=== PATIENT | male | born 1970 | race Caucasian/White ===

== ENCOUNTER → 2021-10-31 10:26 | Outpatient (CLI) | payer OTHER, SELFPAY ==
--- NOTE | 2021-10-31 | DI.CT.S_ITS ---
PROCEDURE: CT LUMBAR SPINE WO CON INDICATIONS: Radiculopathy, lumbosacral region TECHNIQUE: Noncontrast 3 mm thick sections acquired from the T12 level to the sacrum. Sagittal and coronal reformats were constructed. For radiation dose reduction, the following was used: automated exposure control. COMPARISON: None. FINDINGS: Image quality: Excellent. Bones: There is normal bony alignment. 5 lumbar type vertebral bodies are present by plain film. No acute vertebral body compression fractures. No suspicious lytic or blastic bony lesions. No pars defects. Disc space narrowing and endplate osteophyte formation throughout the lumbar spine, worst at L5-S1. There is mild diffuse disc bulge/osteophyte, as well as mild bilateral facet hypertrophy at L5-S1, causing mild canal stenosis, as well as moderate bilateral foraminal stenosis. Mild canal and foraminal stenosis at the remaining lumbar levels secondary to disc and facet disease. Soft tissues: No retroperitoneal masses or hematomas. Visualized aorta is normal in caliber. IMPRESSION: 1. Multilevel degenerative disc and facet disease. 2. Mild multilevel canal stenoses. 3. Multilevel foraminal stenoses, worst at L5-S1, where there are moderate foraminal stenoses. 4. No fracture. Dictated by: Mare You M.D. on 10/31/2021 at 11:47 Transcribed by: SAL on 10/31/2021 at 11:49 Approved by: Mare You M.D. on 10/31/2021 at 11:49
== END ==
PROVIDERS: PCP Family Medicine; Referring Provider Physical Medicine & Rehabilitation; Visit Provider Physical Medicine & Rehabilitation
DX: M54.17 Radiculopathy, lumbosacral region (principal); Z96.21 Cochlear implant status; M51.36 Other intervertebral disc degeneration, lumbar region; M48.061 Spinal stenosis, lumbar region without neurogenic claudication
CPT/HCPCS: 72131

== ENCOUNTER 2021-12-25 10:08 | Outpatient (CLI) | payer OTHER, SELFPAY ==
[2021-12-25] VITALS (7 sets, daily range): BP systolic 113–136; BP diastolic 65–92; PULSE 46–78; RESP 13–20; TEMP 36.3; O2SAT 98–100
--- NOTE | 2021-12-25 10:11 | DI.RAD.S_ITS ---
PROCEDURE: PAIN L/S TRANSFORAMINAL INJECT INDICATIONS: SPONDYLOSIS COMPARISON: None. FINDINGS: Fluoroscopic spot filming was performed to verify placement of spinal needles at the L5-S1 level(s), as labeled on the films. Appropriate location(s) of the needle tip(s) was confirmed by injection of iodinated contrast. IMPRESSION: Fluoroscopic guidance Approved by: Ayan Min M.D. on 12/25/2021 at 16:26
[2021-12-25 10:45] LABS: COVID19 -Nasal RAPID Negative (Negative)
[2021-12-25] MEDS: MIDAZOLAM 2 MG/2 ML VIAL 3 MG IV (11:36)
[2021-12-25] MEDS: IOPAMIDOL 15 ML VIAL 3 ML INJ (11:37)
[2021-12-25] MEDS: DEXAMETHASONE 10 MG/ML VIAL 20 MG INJ (11:38)
[2021-12-25] MEDS: BUPIVACAINE 0.25% (PF) VIAL 2 ML INJ (11:38)
[2021-12-25] MEDS: BETAMETHASONE 30 MG/5 ML MDV 6 MG INJ (11:39)
--- NOTE | 2021-12-25 11:45 | P.PCN_ITS ---
Date/Time/Diagnoses Date of procedure: 12/25/21 Time of procedure: 11:46 Pre-procedure diagnosis: FORAMINAL STENOSIS WITH LE SYMPTOMS Post-procedure diagnosis: same Procedure Notes Procedure: 1. FLUOROSCOPICALLY GUIDED CONTRAST CONTROLLED TRANSFORAMINAL EPIDURAL STEROID INJECTION - LEFT L5/S1 TFESI Indications: Jeyson is referred by Drs. Flynn and Segundo for treatment of Foraminal Stenosis with Right LE Symptoms Physician: Rodolfo Cavanaugh Total Fluoroscopy time (seconds): 10 Total sedation minutes: 11 Complications: none Procedure in detail & Post-procedure care: FINDINGS Foraminal Nerve Root Compression secondary to disc disease and facet hypertrophy DESCRIPTION OF PROCEDURE Following review of allergy and review of potential side effects and complications, including, but not necessarily limited to, infection, allergic reaction, local tissue breakdown, stroke, temporary or permanent nerve injury, paralysis, and possible , the patient indicated that the patient understood and agreed to proceed. An informed consent document was signed by the patient, witnessed by a nurse, and placed in the patient's chart. Additionally, other treatment options including medications, modalities, and physical therapy were reviewed with the patient. After review of previous anaesthesic history and IV conscious sedation the patient was deemed safe to proceed with today?s procedure with IV conscious sedation as ASA class II designation. Safety time-out was performed to confirm patient ID, procedure to be performed and site of procedure. IV sedation was accomplished with a combination of 3mg of Versed was administered by the RN after DO order, titrated to patient comfort during the course of the procedure while the patient remained responsive to all verbal commands In the prone position following sterile prep and drape of the lumbar region, the left L5/S1 posterior neuroforamen was identified fluoroscopically. The skin was anesthetized via a 25-gauge 1.5-inch needle with 1% lidocaine solution. At this point, a 25-gauge 3.5-inch spinal needle was atraumatically introduced and advanced under fluoroscopic guidance through the posterior left L5/S1 neuroforamen to approximately the anterior aspect of the canal. Depth was confirmed on lateral view. Following negative aspiration, injection of approximately 1.5cc of Isovue 200 under live fluoroscopy in the AP view confirmed excellent flow along the nerve root, into the epidural space without vascular or intrathecal uptake observed Radiological data, including multiple fluoroscopic views of the lumbosacral spine, reveal a spinal needle at the left L5/S1 posterior neuroforamen. Subsequent views show flow of contrast material flowing superiorly and inferiorly along the nerve root confirming epidural flow. Subsequently, a test dose of 1.5 cc of 1% lidocaine solution was administered and patient was observed for two minutes for signs or symptoms of complications, including abdominal pain, shortness of breath, bilateral upper or lower extremity weakness, nausea and vomiting, prior to steroid injection. At this point, a total of 3cc or 20mg of dexamethasone and 6mg of betamethasone was injected without incident. The procedure tolerated the procedure well without signs or symptoms of complications prior to transfer to the recovery area continued monitoring without incident. The patient was then transferred to the recovery area where they were observed for an appropriate time after the injection. The patient reported a VAS score of 7 prior to the procedure and a post- procedure VAS of 0. POST OP INSTRUCTIONS The patient was provided a Pain Log to continue to record their response to the target-specific procedure prior to follow-up visit with their referring physician. Additionally, specific post-injection care instructions and a contact number to our office were provided if concerns arise regarding possible complications associated with the procedure are suspected.
== END 2021-12-25 12:07 | disposition home or self-care (01) ==
LOC: RAD 10:10
PROVIDERS: PCP Family Medicine; Referring Provider Physical Medicine & Rehabilitation; Visit Provider Physical Medicine & Rehabilitation
DX: M47.816 Spondylosis without myelopathy or radiculopathy, lumbar region (principal); M54.17 Radiculopathy, lumbosacral region; Z20.822 Contact with and (suspected) exposure to COVID-19
CPT/HCPCS: 64483; 87635; 99152; J0702; J1100; J2250; J3490

== ENCOUNTER 2022-01-20 08:34 | Outpatient (CLI) | payer OTHER, SELFPAY ==
[2022-01-20] VITALS (8 sets, daily range): BP systolic 109–132; BP diastolic 67–87; PULSE 52–72; RESP 12–18; TEMP 36.4; O2SAT 96–100
--- NOTE | 2022-01-20 08:38 | DI.RAD.S_ITS ---
PROCEDURE: PAIN C/T INTERLAMINAR INJECT INDICATIONS: C6/7 TL FRANCISCA COMPARISON: Outside Facility, RG, CT C-SPINE WO CONTRAST, 08/11/2021, 17:51. [facility], XA, PAIN L/S TRANSFORAMINAL INJECT, 12/25/2021, 11:36. FINDINGS: Fluoroscopic spot filming was performed to verify placement of a spinal needle at the C6-C7 level, as labeled on the films. Appropriate location of the needle tip was confirmed by injection of iodinated contrast. IMPRESSION: No significant intraprocedural abnormality. Dictated by: Ant Graham M.D. on 01/20/2022 at 13:48 Approved by: Ant Graham M.D. on 01/20/2022 at 13:48
[2022-01-20] MEDS: MIDAZOLAM 2 MG/2 ML VIAL IV (10:02)
[2022-01-20] MEDS: IOPAMIDOL 15 ML VIAL 3 ML INJ (10:07)
[2022-01-20] MEDS: BUPIVACAINE 0.25% (PF) VIAL 2 ML INJ (10:07)
[2022-01-20] MEDS: DEXAMETHASONE 10 MG/ML VIAL 30 MG INJ (10:08)
--- NOTE | 2022-01-20 10:20 | P.PCN_ITS ---
Date/Time/Diagnoses Date of procedure: 01/20/22 Time of procedure: 10:20 Pre-procedure diagnosis: 1. CERVICAL STENOSIS, 2. CERVICAL HNP WITH UPPER EXTREMITY RADICULAR FEATURES Post-procedure diagnosis: same Procedure Notes Procedure: 1. FLUORSCOPICALLY GUIDED CONTRAST CONTROLLED INTERLAMINAR EPIDURAL STEROID INJECTION - C6/7 TL FRANCISCA Indications: Jeyson is referred by Dr. Flynn for treatment of Cervical HNP with Upper Extremity Paresthesias. Physician: Rodolfo Cavanaugh Total Fluoroscopy time (seconds): 25 Total sedation minutes: 12 Complications: none Procedure in detail & Post-procedure care: FINDINGS Cervical Stenosis due to disc deterioration and nerve root irritation and nerve root irritation DESCRIPTION OF PROCEDURE Fluoroscopically guided, contrast-controlled C6/7 translaminar epidural steroid injection with conscious sedation. Following review of allergy and review of potential side effects and complications, including, but not necessarily limited to, infection, allergic reaction, local tissue breakdown, temporary as well as permanent nerve injury, stroke, paralysis, and possible , the patient indicated that patient understood and agreed to proceed. An informed consent document was signed by the patient, witnessed by a nurse, and placed in the patient's chart. Additionally, other treatment options including modalities, medications, and physical therapy were reviewed with the patient. After review of previous anaesthesic history and IV conscious sedation the patient was deemed safe to proceed with today?s procedure with IV conscious sedation as ASA class II designation. Safety time-out was performed to confirm patient ID, procedure to be performed and site of procedure. IV sedation was accomplished with a combination of 2mg of Versed administered by the RN after DO order, titrated to patient comfort during the course of the procedure while the patient remained responsive to all verbal commands. In the prone position, following sterile prep and drape of the cervical region, the C6/7 translaminar space was identified fluoroscopically. The skin was anesthetized via a 25-gauge 1.5-inch needle with 1% lidocaine solution. At this point, a 25-gauge, 2.5-inch short bevel spinal needle was atraumatically introduced and advanced under fluoroscopic guidance into epidural space at the C6/7 translaminar space. Depth was confirmed on lateral view. Radiological data, including multiple fluoroscopic views of the cervical spine, reveal a spinal needle at the C6/7 translaminar space. Lateral views then show placement of the needle in the epidural space. Subsequent views show contrast material flowing superiorly and inferiorly in the epidural space. DSA fluoroscopy with live contrast injection, once again, confirmed no vascular or intrathecal uptake. At this point, using loss of resistance technique with saline and air, the epidural space was entered. Following negative aspiration, injection of approximately 1.5 cc of Isovue-200 with live fluoroscopy in the AP view confirmed epidural flow in the epidural space without vascular or intrathecal uptake observed. Subsequently, a test dose of 1 cc of 1% lidocaine solution was injected and patient was observed for two minutes without signs or symptoms of complications, including abdominal pain, shortness of breath, bilateral upper or lower extremity weakness, nausea and vomiting, prior to steroid injection. At this point, 3cc or 30mg of dexamethasone was then injected without incident. The patient tolerated the procedure well without signs or symptoms of comp lications prior to being transferred to the recovery area for further monitoring, The patient was then transferred to the recovery area where they were observed for an appropriate period of time after the injection. The patient reported a VAS score of 6 prior to the procedure and a post-procedure VAS of 0. POST OP INSTRUCTIONS The patient was provided a Pain Log to continue to record their response to the target-specific procedure prior to follow-up visit with the referring provider. Additionally, specific post-injection care instructions and a contact number to our office were provided if concerns arise regarding possible complications associated with the procedure are suspected.
== END 2022-01-20 10:35 | disposition home or self-care (01) ==
PROVIDERS: PCP Family Medicine; Referring Provider Physical Medicine & Rehabilitation; Visit Provider Physical Medicine & Rehabilitation
DX: M48.02 Spinal stenosis, cervical region (principal); M50.123 Cervical disc disorder at C6-C7 level with radiculopathy
CPT/HCPCS: 62321; 99152; J1100; J2250; J3490

== ENCOUNTER 2022-04-02 07:44 | Outpatient (CLI) | payer OTHER, SELFPAY ==
[2022-04-02] VITALS (9 sets, daily range): BP systolic 111–138; BP diastolic 72–85; PULSE 61–83; RESP 12–20; TEMP 36.3; O2SAT 96–100
--- NOTE | 2022-04-02 07:48 | DI.RAD.S_ITS ---
PROCEDURE: PAIN L/SI FACET INJ/BLK 1STL INDICATIONS: SPONDYLOSIS COMPARISON: None. FINDINGS: Fluoroscopic spot filming was performed to verify placement of spinal needles at the left L4-L5 and L5-S1 level(s), as labeled on the films. Appropriate location(s) of the needle tip(s) was confirmed by injection of iodinated contrast. IMPRESSION: Fluoroscopy for pain management. Dictated by: Deepika Rodriguez M.D. on 04/02/2022 at 11:57 Approved by: Deepika Rodriguez M.D. on 04/02/2022 at 14:30
[2022-04-02] MEDS: MIDAZOLAM 2 MG/2 ML VIAL IV (08:41)
[2022-04-02] MEDS: IOPAMIDOL 15 ML VIAL 3 ML INJ (08:45)
[2022-04-02] MEDS: BUPIVACAINE 0.5% (PF) VIAL 5 ML INJ (08:45)
[2022-04-02] MEDS: BETAMETHASONE 30 MG/5 ML MDV 12 MG INJ (08:46)
--- NOTE | 2022-04-02 08:56 | P.PCN_ITS ---
Date/Time/Diagnoses Date of procedure: 04/02/22 Time of procedure: 08:56 Pre-procedure diagnosis: 1. FACET ARTHROPATHY, 2. AXIAL LBP, 3. MULTILEVEL DDD Post-procedure diagnosis: same Procedure Notes Procedure: 1. FLUOROSCOPICALLY GUIDED CONTRAST CONTROLLED FACET JOINT INJECTIONS LEFT L4/5, L5/S1 Indications: Jeyson is referred by Dr. Flynn for treatment of Axial LBP Physician: Rodolfo Cavanaugh Total Fluoroscopy time (seconds): 8 Total sedation minutes: 9 Complications: none Procedure in detail & Post-procedure care: FINDINGS Multilevel Facet Arthropathy with Clinically significant axial LBP DESCRIPTION OF PROCEDURE Fluoroscopically guided, contrast-controlled left L4/5, L5/S1 facet joint injections. Following review of allergy and review of potential side effects and complications, including, but not necessarily limited to, infection, allergic reaction, local tissue breakdown, stroke, temporary or permanent nerve injury, paralysis, and possible , the patient indicated that the patient understood and agreed to proceed. An informed consent document was signed by the patient, witnessed by a nurse, and placed in the patient's chart. Additionally, other treatment options including medications, modalities, and physical therapy were reviewed with the patient. After review of previous anaesthesic history and IV conscious sedation the patient was deemed safe to proceed with today?s procedure with IV conscious sedation as ASA class II designation. Safety time-out was performed to confirm patient ID, procedure to be performed and site of procedure. IV sedation was accomplished with a combination of 2mg of Versed was administered by the RN after DO order, titrated to patient comfort during the course of the procedure while the patient remained responsive to all verbal commands. In the prone position, following sterile prep and drape of the lumbar region, the posterior aspect of the left L4/5, L5/S1 facet joints were identified fluoroscopically. The skin was anesthetized via a 25-gauge 1.5-inch needle with 1% lidocaine solution into the corresponding facet joints. At this point, a 22- gauge 3.5-inch spinal needle was atraumatically introduced and advanced under fluoroscopic guidance into the corresponding facet joints. Following negative aspiration, injections of approximately 0.2-cc of Isovue 200 confirmed interarticular placement without vascular uptake. Radiological data, including multiple fluoroscopic views of the lumbosacral spine, reveal a spinal needle at the left L4/5, L5/S1 facet joints. Subsequent views show flow of contrast material both superiorly and inferiorly within the joint space without vascular or intrathecal uptake. At this point, a total of 0.5 cc including a mixture of 0.25cc Marcaine and 0.25cc betamethasone was injected without complication into each of the corresponding facet joints. The procedure tolerated the procedure well without signs or symptoms of complications prior to transfer to the recovery area continued monitoring without incident. The patient was then transferred to the recovery area where they were observed for an appropriate period of time after the injection. The patient reported a VAS score of 7 prior to the procedure and a post-procedure VAS of 0. POST OP INSTRUCTIONS The patient was provided a Pain Log to continue to record their response to the target-specific procedure prior to follow-up visit with their referring physician. Additionally, specific post-injection care instructions and a contact number to our office were provided if concerns arise regarding possible complications associated with the procedure are suspected.
== END 2022-04-02 09:25 | disposition home or self-care (01) ==
LOC: RAD 07:46
PROVIDERS: PCP Family Medicine; Referring Provider Physical Medicine & Rehabilitation; Visit Provider Physical Medicine & Rehabilitation
DX: M47.816 Spondylosis without myelopathy or radiculopathy, lumbar region (principal); M47.817 Spondylosis without myelopathy or radiculopathy, lumbosacral region; M51.36 Other intervertebral disc degeneration, lumbar region; M51.37 Other intervertebral disc degeneration, lumbosacral region
CPT/HCPCS: 64493; 64494; J0702; J2250

== ENCOUNTER 2022-05-12 08:56 | Outpatient (CLI) | payer OTHER, SELFPAY ==
[2022-05-12] VITALS (7 sets, daily range): BP systolic 111–134; BP diastolic 72–91; PULSE 88–92; RESP 10–20; TEMP 36.1; O2SAT 97–100
--- NOTE | 2022-05-12 08:57 | DI.RAD.S_ITS ---
PROCEDURE: PAIN C/T FACET INJ/BLK 1ST L INDICATIONS: SPINAL STENOSIS COMPARISON: [facility], XA, PAIN C/T INTERLAMINAR INJECT, 01/20/2022, 10:06. [facility], XA, PAIN L/SI FACET INJ/BLK 1STL, 04/02/2022, 9:44. FINDINGS: Fluoroscopic spot filming was performed to verify placement of spinal needles on the right at the C4-C5, C5-C6, and C6-C7 levels, as labeled on the films. Appropriate location of the needle tips was confirmed by injection of iodinated contrast. IMPRESSION: Intraprocedural examination demonstrating appropriate positions of the needles. Dictated by: Ant Graham M.D. on 05/12/2022 at 10:59 Approved by: Ant Graham M.D. on 05/12/2022 at 11:00
[2022-05-12] MEDS: MIDAZOLAM 2 MG/2 ML VIAL IV (10:29)
[2022-05-12] MEDS: IOPAMIDOL 15 ML VIAL 3 ML INJ (10:34)
[2022-05-12] MEDS: DEXAMETHASONE 10 MG/ML VIAL 30 MG INJ (10:34)
[2022-05-12] MEDS: BUPIVACAINE 0.5% MDV 5 ML SUBCUT (10:36)
--- NOTE | 2022-05-12 10:46 | P.PCN_ITS ---
Date/Time/Diagnoses Date of procedure: 05/12/22 Time of procedure: 10:46 Pre-procedure diagnosis: 1. FACET ARTHROPATHY 2. AXIAL NECK PAIN Post-procedure diagnosis: same Procedure Notes Procedure: 1. FLUOROSCOPICALLY GUIDED, CONTRAST-CONTROLLED RIGHT C4/5, C5/6 AND C6/7 FACET JOINT INJECTIONS WITH CONSCIOUS SEDATION. Indications: Jeyson is referred by Dr. Flynn for treatment of Axial Neck Pain Physician: Rodolfo Cavanaugh Total Fluoroscopy time (seconds): 8 Total sedation minutes: 12 Complications: none Procedure in detail & Post-procedure care: DESCRIPTION OF PROCEDURE Fluoroscopically guided, contrast-controlled right C4/5, C5/6 and C6/7 facet joint injections with conscious sedation. Following review of allergy and review of potential side effects and complications, including, but not necessarily limited to, infection, allergic reaction, local tissue breakdown, stroke, temporary or permanent nerve injury and paralysis, the patient indicated that the patient understood and agreed to proceed. An informed consent document was signed by the patient, witnessed by a nurse, and placed in the patient's chart. Additionally, other treatment options including medications, modalities, and physical therapy were reviewed with the patient. After review of previous anaesthesic history and IV conscious sedation the patient was deemed safe to proceed with today?s procedure with IV conscious sedation as ASA class II designation. Safety time-out was performed to confirm patient ID, procedure to be performed and site of procedure. IV sedation was accomplished with a combination of 2mg of Versed was administered by the RN after DO order, titrated to patient comfort during the course of the procedure while the patient remained responsive to all verbal commands In the prone position, following sterile prep and drape of the cervical spine region, the posterior aspect of the right C4/5, C5/6 and C6/7 facet joints were identified fluoroscopically. The skin was anesthetized via a 25-gauge 1.5-inch needle with 1% lidocaine solution into the corresponding facet joints. At this point, a 25-gauge 2.5-inch spinal needle was atraumatically introduced and advanced under fluoroscopic guidance into the corresponding facet joints. Following negative aspiration, injections of approximately 0.2-cc of Isovue 200 confirmed interarticular placement without vascular uptake. At this point, a total of 1 cc including 0.5cc or 5mg of dexamethasone combined with 0.5 cc of 1% lidocaine solution was injected without complication into each of the corresponding facet joints. The procedure tolerated the procedure well without signs or symptoms of complications prior to transfer to the recovery area continued monitoring without incident. The patient was then transferred to the recovery area where they were observed for an appropriate period of time after the injection. The patient reported a VAS score of 7 prior to the procedure and a post- procedure VAS of 0. POST OP INSTRUCTIONS They were provided a Pain Log to continue to record their response to the target-specific procedure prior to their follow-up visit with their referring physician. Additionally, specific post-injection care instructions and a contact number to our office were provided if concerns arise regarding possible complications associated with the procedure are suspected.
== END 2022-05-12 11:05 | disposition home or self-care (01) ==
LOC: RAD 08:56
PROVIDERS: PCP Family Medicine; Referring Provider Physical Medicine & Rehabilitation; Visit Provider Physical Medicine & Rehabilitation
DX: M47.812 Spondylosis without myelopathy or radiculopathy, cervical region (principal)
CPT/HCPCS: 64490; 64491; 64492; 99152; J1100; J2250

== ENCOUNTER 2023-02-02 10:27 | Outpatient (CLI) | payer OTHER, SELFPAY ==
[2023-02-02] VITALS (10 sets, daily range): BP systolic 105–124; BP diastolic 58–80; PULSE 47–79; RESP 11–19; O2SAT 93–98
--- NOTE | 2023-02-02 10:29 | DI.RAD.S_ITS ---
PROCEDURE: PAIN L/SI FACET INJ/BLK 1STL INDICATIONS: SPONDYLOSIS COMPARISON: [facility], , PAIN L/SI FACET INJ/BLK 1STL, 04/02/2022, 9:44. FINDINGS: Fluoroscopic spot filming was performed to verify placement of spinal needles at the L4, L5, S1 level(s), as labeled on the films. Appropriate location(s) of the needle tip(s) was confirmed by injection of iodinated contrast. IMPRESSION: Needle placement contrast overlying L4, L5 and S1. Dictated by: Leatha Reatna M.D. on 02/02/2023 at 15:36 Approved by: Leatha Retana M.D. on 02/02/2023 at 15:36
[2023-02-02] MEDS: MIDAZOLAM 2 MG/2 ML VIAL IV (11:08)
[2023-02-02] MEDS: iopamidoL 15 ML VIAL 3 ML INJ (11:10)
[2023-02-02] MEDS: BUPIVACAINE 0.5% (PF) 10 ML VIAL 2 ML INJ (11:11)
--- NOTE | 2023-02-02 11:27 | P.PCN_ITS ---
Date/Time/Diagnoses Date of procedure: 02/02/23 Time of procedure: 11:27 Pre-procedure diagnosis: 1. FACET ARTHROPATHY Post-procedure diagnosis: same Procedure Notes Procedure: 1. Left L4, L5 and S1 MB BLOCKS LA Indications: Jeyson is referred by Dr. Flynn for treatment of Left Axial LBP. Physician: Rodolfo Cavanaugh Total Fluoroscopy time (seconds): 9 Total sedation minutes: 10 Complications: none Procedure in detail & Post-procedure care: DESCRIPTION OF PROCEDURE Fluoroscopically guided, contrast-controlled left L4, L5 and S1 medial branch blocks with 0.5cc of 0.5% Marcaine. Following review of allergy and review of potential side effects and complications, including, but not necessarily limited to, infection, allergic reaction, local tissue breakdown, nerve injury, paralysis, stroke and possible , the patient indicated that the patient understood and agreed to proceed. An informed consent document was signed by the patient, witnessed by a nurse, and placed in the patient's chart. After review of previous anaesthesic history and IV conscious sedation the patient was deemed safe to proceed with today?s procedure with IV conscious sedation as ASA class II designation. Safety time-out was performed to confirm patient ID, procedure to be performed and site of procedure. IV sedation was accomplished with a combination of 2mg of Versed was administered by the RN after DO order, titrated to patient comfort during the course of the procedure while the patient remained responsive to all verbal commands. In the prone position, following sterile prep and drape of the lumbar region, the left L4, L5 and S1 anatomical location of the medial branch of the dorsal ramus was identified fluoroscopically. Subsequently an anesthetic skin wheal using 1% lidocaine solution was initiated at each of the anatomical spots. Subsequently then a 22-gauge 3.5-inch spinal needle was atraumatically introduced and advanced under fluoroscopic guidance at each of the corresponding sites at the left L4, L5 and S1 MB. After negative aspiration, 0.2cc of Isovue 200 was injected, confirming placement without vascular or intrathecal uptake. Subsequently then 0.5cc of 0.5% Marcaine solution was injected at each of the corresponding sites at the left L4, L5 and S1 medial branch locations. The patient tolerated the procedure well without signs or symptoms of complications. The patient tolerated the procedure well without signs or symptoms of complications prior to transfer to the recovery area continued monitoring without incident. Post-procedure, the patient was monitored initiating provocative activities to measure the amount of relief from block of the facetogenic pain. The patient reported a VAS of 7 prior to the procedure and a post-procedure VAS of 1. It has been a pleasure to assist in the diagnostic and therapeutic care of your patient. POST OP INSTRUCTIONS The patient was provided with a Pain Log to complete over the next several hours and subsequent days prior to the patient's follow up with the ordering physician. If the patient has director database relief to the solution applied, then they may be a candidate for medial branch rhizotomy. The patient is aware, was provided, once again, with a Pain Log and will follow up with the referring physician for review and clinical correlation.
== END 2023-02-02 11:45 | disposition home or self-care (01) ==
PROVIDERS: PCP Family Medicine; Referring Provider Physical Medicine & Rehabilitation; Visit Provider Physical Medicine & Rehabilitation
DX: M47.816 Spondylosis without myelopathy or radiculopathy, lumbar region (principal)
CPT/HCPCS: 64493; 64494; 99152; J2250

== ENCOUNTER 2023-02-25 09:45 | Outpatient (CLI) | payer OTHER, SELFPAY ==
[2023-02-25] VITALS (8 sets, daily range): BP systolic 121–130; BP diastolic 75–99; PULSE 50–75; RESP 14–20; TEMP 36.3; O2SAT 97–100
--- NOTE | 2023-02-25 09:47 | DI.RAD.S_ITS ---
PROCEDURE: PAIN L/SI FACET INJ/BLK 1STL INDICATIONS: SPONDYLOSIS COMPARISON: [facility], , PAIN L/SI FACET INJ/BLK 1STL, 02/02/2023, 11:16. FINDINGS: Fluoroscopic spot filming was performed to verify placement of spinal needles at the L4, L5, and S1 medial branch level(s), as labeled on the films. IMPRESSION: Fluoroscopic imaging provided for multilevel medial branch block procedure. Is Dictated by: Noble Bellamy M.D. on 02/25/2023 at 17:18 Approved by: Noble Bellamy M.D. on 02/25/2023 at 17:19
--- NOTE | 2023-02-25 11:02 | PM.PROC.IR.1 ---
Date/Time/Diagnoses Date of procedure: 02/25/23 Time of procedure: 11:02 Pre-procedure diagnosis: Lumbar Facet Arthropathy Post-procedure diagnosis: same Procedure Notes Procedure: 1. Right L4, L5 and S1 MB BLOCKS SA Indications: Jeyson is referred by Dr. Flynn for treatment of Right Axial LBP. Physician: Rodolfo Cavanaugh Total Fluoroscopy time (seconds): 5 Total sedation minutes: 10 Complications: none Procedure in detail & Post-procedure care: DESCRIPTION OF PROCEDURE Fluoroscopically guided, contrast-controlled right L4, L5 and S1 medial branch blocks with 0.5cc of 2% Lidocaine. Following review of allergy and review of potential side effects and complications, including, but not necessarily limited to, infection, allergic reaction, local tissue breakdown, nerve injury, paralysis, stroke and possible , the patient indicated that the patient understood and agreed to proceed. An informed consent document was signed by the patient, witnessed by a nurse, and placed in the patient's chart. After review of previous anaesthesic history and IV conscious sedation the patient was deemed safe to proceed with today?s procedure with IV conscious sedation as ASA class II designation. Safety time-out was performed to confirm patient ID, procedure to be performed and site of procedure. IV sedation was accomplished with a combination of 2mg of Versed was administered by the RN after DO order, titrated to patient comfort during the course of the procedure while the patient remained responsive to all verbal commands In the prone position, following sterile prep and drape of the lumbar region, the right L4, L5 and S1 anatomical location of the medial branch of the dorsal ramus was identified fluoroscopically. Subsequently an anesthetic skin wheal using 1% lidocaine solution was initiated at each of the anatomical spots. Subsequently then a 22-gauge 3.5-inch spinal needle was atraumatically introduced and advanced under fluoroscopic guidance at each of the corresponding sites at the right L4, L5 and S1 MB. After negative aspiration, 0.2 cc of Isovue 200 was injected, confirming placement without vascular or intrathecal uptake. Subsequently then 0.5 cc of 2% Lidocaine solution was injected at each of the corresponding sites at the right L4, L5 and S1 medial branch locations. The patient tolerated the procedure well without signs or symptoms of complications. The procedure tolerated the procedure well without signs or symptoms of complications prior to transfer to the recovery area continued monitoring without incident. Post-procedure, the patient was monitored initiating provocative activities to measure the amount of relief from block of the facetogenic pain. The patient reported a VAS of 7 prior to the procedure and a post-procedure VAS of 1. It has been a pleasure to assist in the diagnostic and therapeutic care of your patient. POST OP INSTRUCTIONS The patient was provided with a Pain Log to complete over the next several hours and subsequent days prior to the patient's follow up with the ordering physician. If the patient has insurance risk manager relief to the solution applied, then they may be a candidate for medial branch rhizotomy. The patient is aware, was provided, once again, with a Pain Log and will follow up with the referring physician for review and clinical correlation.
== END 2023-02-25 11:21 | disposition home or self-care (01) ==
LOC: RAD 09:46
PROVIDERS: PCP Family Medicine; Referring Provider Physical Medicine & Rehabilitation; Visit Provider Physical Medicine & Rehabilitation
DX: M47.816 Spondylosis without myelopathy or radiculopathy, lumbar region (principal)
CPT/HCPCS: 64493; 64494; 99152; J2250

== ENCOUNTER 2023-06-29 09:40 | Outpatient (CLI) | payer OTHER, SELFPAY ==
[2023-06-29] VITALS (8 sets, daily range): BP systolic 101–146; BP diastolic 58–92; PULSE 51–83; RESP 10–18; TEMP 36.5; O2SAT 95–100
--- NOTE | 2023-06-29 10:15 | DI.RAD.S_ITS ---
PROCEDURE: PAIN L/SI FACET INJ/BLK 1STL INDICATIONS: FACET ARTHROPATHY COMPARISON: [facility], , PAIN L/SI FACET INJ/BLK 1STL, 02/25/2023, 11:52. FINDINGS: Fluoroscopic spot filming was performed to verify placement of spinal needles at the left L4, L5 and S1 level(s), as labeled on the films. Appropriate location(s) of the needle tip(s) was confirmed by injection of iodinated contrast. IMPRESSION: Intra procedural examination demonstrating appropriate positions of the needles. Dictated by: Humphrey Laird M.D. on 06/29/2023 at 14:09 Approved by: Humphrey Laird M.D. on 06/29/2023 at 14:10
[2023-06-29] MEDS: MIDAZOLAM 2 MG/2 ML VIAL IV (10:38)
[2023-06-29] MEDS: iopamidoL 15 ML VIAL 3 ML INJ (10:43)
[2023-06-29] MEDS: LIDOCAINE 2% INJ MDV 20ML 5 ML INJ (10:43)
--- NOTE | 2023-06-29 10:51 | P.PCN_ITS ---
Date/Time/Diagnoses Date of procedure: 06/29/23 Time of procedure: 10:52 Pre-procedure diagnosis: FACET ARTHROPATHY Post-procedure diagnosis: same Procedure Notes Procedure: 1. Left L4, L5 and S1 MB BLOCKS SA Indications: Jeyson is referred by Dr. Flynn for treatment of Left Axial LBP. Physician: Rodolfo Cavanaugh Total Fluoroscopy time (seconds): 12 Total sedation minutes: 10 Complications: none Procedure in detail & Post-procedure care: DESCRIPTION OF PROCEDURE Fluoroscopically guided, contrast-controlled left L4, L5 and S1 medial branch blocks with 0.5cc of 2% Lidocaine. Following review of allergy and review of potential side effects and complications, including, but not necessarily limited to, infection, allergic reaction, local tissue breakdown, nerve injury, paralysis, stroke and possible d eath, the patient indicated that the patient understood and agreed to proceed. An informed consent document was signed by the patient, witnessed by a nurse, and placed in the patient's chart. After review of previous anaesthesic history and IV conscious sedation the patient was deemed safe to proceed with today?s procedure with IV conscious sedation as ASA class II designation. Safety time-out was performed to confirm patient ID, procedure to be performed and site of procedure. IV sedation was accomplished with a combination of 2mg of Versed was administered by the RN after DO order, titrated to patient comfort during the course of the procedure while the patient remained responsive to all verbal commands. In the prone position, following sterile prep and drape of the lumbar region, the left L4, L5 and S1 anatomical location of the medial branch of the dorsal ramus was identified fluoroscopically. Subsequently an anesthetic skin wheal using 1% lidocaine solution was initiated at each of the anatomical spots. Subsequently then a 22-gauge 3.5-inch spinal needle was atraumatically introduced and advanced under fluoroscopic guidance at each of the corresponding sites at the left L4, L5 and S1 MB. After negative aspiration, 0.2cc of Isovue 200 was injected, confirming placement without vascular or intrathecal uptake. Subsequently then 0.5cc of 2% Lidocaine solution was injected at each of the corresponding sites at the left L4, L5 and S1 medial branch locations. The patient tolerated the procedure well without signs or symptoms of complications. The patient tolerated the procedure well without signs or symptoms of complications prior to transfer to the recovery area continued monitoring without incident. Post-procedure, the patient was monitored initiating provocative activities to measure the amount of relief from block of the facetogenic pain. The patient reported a VAS of 7 prior to the procedure and a post-procedure VAS of 1. It has been a pleasure to assist in the diagnostic and therapeutic care of your patient. POST OP INSTRUCTIONS The patient was provided with a Pain Log to complete over the next several hours and subsequent days prior to the patient's follow up with the ordering physician. If the patient has crusher screen repairer relief to the solution applied, then they may be a candidate for medial branch rhizotomy. The patient is aware, was provided, once again, with a Pain Log and will follow up with the referring physician for review and clinical correlation.
--- NOTE | 2023-06-29 11:10 | PC.NURSE ---
Patient dizzy when stood up to transfer to from recliner with 2 person minimal assist. This nurse will reassess with 2 person assist and transfer patient to when patient no longer experiences dizziness on transfer.
--- NOTE | 2023-06-29 11:20 | PC.NURSE ---
Patient reassessed at 1115 per his request. He stated that he ,was ready. He was again stood with 2 person minimal assist and it was determined that he did not feel dizzy on transfer to the and he was ready to be discharged.
== END 2023-06-29 11:18 | disposition home or self-care (01) ==
PROVIDERS: PCP Family Medicine; Referring Provider Physical Medicine & Rehabilitation; Visit Provider Physical Medicine & Rehabilitation
DX: M47.816 Spondylosis without myelopathy or radiculopathy, lumbar region (principal); M47.817 Spondylosis without myelopathy or radiculopathy, lumbosacral region
CPT/HCPCS: 64493; 64494; 99152; J2250

== ENCOUNTER 2023-08-10 07:13 | Outpatient (CLI) | payer OTHER, SELFPAY ==
[2023-08-10] VITALS (12 sets, daily range): BP systolic 108–141; BP diastolic 65–87; PULSE 53–73; RESP 11–25; TEMP 36.6; O2SAT 94–97
--- NOTE | 2023-08-10 08:00 | DI.RAD.S_ITS ---
PROCEDURE: PAIN L/S MED/LAT N RFA INDICATIONS: Left L4, L5 and S1 MB RFA COMPARISON: None. FINDINGS: Fluoroscopic spot filming was performed to verify placement of spinal needles at the left L4 through S1 level(s), as labeled on the films. Appropriate location(s) of the needle tip(s) was confirmed by injection of iodinated contrast. IMPRESSION: Fluoroscopic guidance utilized for radiofrequency ablation. Dictated by: Miki West M.D. on 08/10/2023 at 12:28 Approved by: Miki West M.D. on 08/10/2023 at 12:29
[2023-08-10] MEDS: MIDAZOLAM 2 MG/2 ML VIAL 1 MG IV ×2 (08:11→08:22)
[2023-08-10] MEDS: fentaNYL 100 MCG/2 ML INJ 25 MCG IV ×2 (08:11→08:22)
[2023-08-10] MEDS: LIDOCAINE 1% 20 ML 5 ML INJ (08:24)
[2023-08-10] MEDS: BUPIVACAINE 0.5% (PF) 10 ML VIAL 5 ML INJ (08:25)
--- NOTE | 2023-08-10 08:50 | P.PCN_ITS ---
Date/Time/Diagnoses Date of procedure: 08/10/23 Time of procedure: 08:50 Pre-procedure diagnosis: 1. RECALCITRANT FACET ARTHROPATHY Post-procedure diagnosis: same Procedure Notes Procedure: 1. LEFT L4 AND L5 MEDIAL BRANCH RADIOFREQUENCY NEUROTOMY AND LEFT S1 DORSAL RAMUS RADIOFREQUENCY NEUROTOMY, Indications: Jeyson is referred by Dr. Flynn for treatment of facet arthropathy. Physician: Rodolfo Cavanaugh Total Fluoroscopy time (seconds): 11 Total sedation minutes: 34 Complications: none Procedure in detail & Post-procedure care: DESCRIPTION OF PROCEDURE Left L4 and L5 medial branch radiofrequency neurotomy and left S1 dorsal ramus branch radiofrequency neurotomy under fluoroscopy with conscious sedation. The patient is well known to this clinic having undergone previous facet injections with good but temporary relief. The patient has experienced appropriate, concordant relief with previous facet and median branch blocks but the patient's pain has been recalcitrant to further conservative measures. Therefore, based upon the patient's relief and persistent symptoms, the patient is considered an appropriate candidate for facet rhizotomy. All of the patient's questions regarding the risks versus benefits of the procedure, including, but not limited to, bleeding, infection, temporary as well as lasting nerve injury, paralysis, stroke, and , as well treatment alternatives were answered to satisfaction. After obtaining informed consent, denial of pertinent drug allergies, as well as being made aware of the potential risks of bleeding, infection, spinal cord trauma, paralysis, temporary and permanent nerve damage, seizure, stroke, and possible , the patient was brought to the fluoroscopy suite and positioned prone on the fluoroscopy table. The lumbar region was prepped with Betadine and covered with a fenestrated drape in the usual sterile fashion. Appropriate monitors applied including pulse oximeter, pulse, and blood pressure for regular monitoring throughout the procedure. IV sedation was accomplished with a combination of 2mg of Versed and 50mcg of Fentanyl titrated to patient comfort during the course of the procedure while the patient remained responsive to all verbal commands. After local infiltration using 1% lidocaine, under fluoroscopic guidance, a 10- cm RF insulated needle with a 10-mm active tip was positioned parallel to the junction of the left sacral ala and the superior articulating process where the S1 dorsal ramus resides. Needle placement was confirmed with sensory stimulation at 50 Hz, with motor stimulation of .5v on the left which produced local stimulation without radicular component. The stimulation was then increased to 2v with, once again, only local multifidus stimulation without radicular component. This was then followed by two discreet lesions performed at 80 degrees Celsius for 90 seconds each. The needle was then removed and the identical procedure was performed along the length of the left L5 medial branch with motor stimulation at .7v on the left. The identical procedure was once again performed along the length of the left L4 medial branch with motor stimulation of .5v on the left. The patient tolerated the procedure well without signs or symptoms of complications prior to transfer to the recovery area continued monitoring without incident. The patient was then transferred to the recovery area where they were observed for an appropriate period of time after the injection. The patient was then transferred to the recovery area where they were observed for an appropriate period of time after the injection. The patient reported a VAS score of 8 prior to the procedure and a post- procedure VAS of 2. POST OP INSTRUCTIONS The patient was provided a Pain Log to continue to record the patient's response to the target-specific procedure prior to the patient's follow-up visit with the referring physician. Additionally, specific post-injection care instructions and a contact number to our office were provided if concerns arise regarding possible complications associated with the procedure are suspected.
--- NOTE | 2023-08-10 08:59 | PC.NURSE ---
The impedence numbers were high before the first cauterization. During the first cauterization of the nerves the patient complained of his right calf having a burning sensation. The cauterization was done and Dr. Cavanaugh attempted to press the cautery pad onto the patients skin to create a better seal. The numbers got better and then worse again. The cautery pad was removed from his right calf. It was noted that there were 3 small (size of a pea) hardened areas in the shape of a triangle on his right calf when the cautery pad was removed. The cautery pad was then changed to the left calf and the impedence numbers were at a normal level. The RFA was continued without further incidence.
[2023-08-10] MEDS: NEOMYCIN/POLYMYXIN/BACITRA UD OINT 1 EACH TOP (09:09)
--- NOTE | 2023-08-10 09:26 | PC.NURSE ---
Eng on Right Leg Patient with burn blister to R lower leg from grounding pad in procedure. Dr. Cavanaugh aware and inspected blisters in recovery room for DI. Verbal orders for triple antibiotic ointment received to be placed on eng/blisters with tegaderm applied over. These orders implemented by this RN. Patient tolerated this well. Discharge instructions reviewed with the patient again and more instructions concerning the blisters/eng given and verbal understanding received. Patient discharged home.
== END 2023-08-10 09:15 | disposition home or self-care (01) ==
LOC: RAD 07:14
PROVIDERS: PCP Family Medicine; Referring Provider Physical Medicine & Rehabilitation; Visit Provider Physical Medicine & Rehabilitation
DX: M47.816 Spondylosis without myelopathy or radiculopathy, lumbar region (principal); M47.817 Spondylosis without myelopathy or radiculopathy, lumbosacral region
CPT/HCPCS: 64635; 64636; 99152; 99153; J2250; J3010